=== PATIENT | female | born 1945 | race Caucasian/White ===

== ENCOUNTER 2018-05-05 10:55 | Observation (INO) | payer OTHER ==
[~2018-05-05] VITALS: Ht 167.6 cm; Wt 76.1 kg
[~2018-05-05 10:55] MED LIST: BAYER CHEWABLE81 MG PO; CRESTOR40 MG PO; LOSARTAN POTAS100 MG PO; METOPROLOL TART50 MG PO; MOTRIN800 MG PO
[2018-05-05 11:27] LABS: HEMATOCRIT 30.3 % (36.0-46.0); HEMOGLOBIN 9.9 G/DL (11.9-15.5); MCHC 32.7 G/DL (30.0-36.0); MCV 85.6 FL (83-99); PLATELET COUNT 169 K/uL (156-360); RBC DIS.WIDTH-CV 15.2 % (11.8-14.6); RBC DIS.WIDTH-SD 47.9 % (39-53); RED BLOOD COUNT 3.54 M/uL (3.80-5.20); WHITE BLOOD COUNT 5.5 K/uL (4.1-10.2)
[2018-05-05 11:36] LABS: CHLORIDE 110 mEq/L (99-109); SODIUM 140 mEq/L (136-147)
[2018-05-05 11:38] LABS: GLUCOSE 93 mg/dL (70-99)
[2018-05-05 11:41] LABS: CREATININE 1.1 mg/dL (0.6-1.3); GFR ESTIMATE (CALCULATED) 52 mL/min/
[2018-05-05 11:42] LABS: UREA NITROGEN (BUN) 23 mg/dL (9-23)
[2018-05-05 11:48] LABS: TROP-I INTERPRETATION NEGATIVE; TROPONIN-I 0.01 ng/mL (0.0-0.30)
[2018-05-05] MEDS ORDERED: IBUPROFEN800 MG PO (14:39)
[2018-05-05] MEDS ORDERED: METFORMIN HCL500 MG PO (14:40)
[2018-05-05] MEDS ORDERED: ZOCOR20 MG PO (14:41)
[2018-05-05] MEDS ORDERED: COLACE100 MG PO (14:41)
[2018-05-05 15:03] LABS: HDL CHOLESTEROL 39 MG/DL (Desirable>=50); LDL CHOLESTEROL 141 mg/dL (Desirable<100); NON-HDL CHOLESTEROL 170 mg/dL (Desirable<160); TOTAL CHOLESTEROL 209 mg/dL (Desirable<200); TRIGLYCERIDES 144 MG/DL (Normal: <150)
[2018-05-05 16:29] VITALS: BP 180/73
[2018-05-05 18:27] LABS: TROP-I INTERPRETATION NEGATIVE; TROPONIN-I 0.01 ng/mL (0.0-0.30)
[2018-05-05 19:09] VITALS: BP 167/73
[2018-05-06 01:07] LABS: TROP-I INTERPRETATION NEGATIVE; TROPONIN-I 0.01 ng/mL (0.0-0.30)
[2018-05-06 01:40] VITALS: BP 140/67
[2018-05-06 05:15] VITALS: BP 162/73
[2018-05-06 05:30] LABS: HEMATOCRIT 28.9 % (36.0-46.0); HEMOGLOBIN 9.2 G/DL (11.9-15.5); MCH 27.6 PG (29.0-34.0); MCHC 31.8 G/DL (30.0-36.0); MCV 86.8 FL (83-99); PLATELET COUNT 146 K/uL (156-360); RBC DIS.WIDTH-CV 15.1 % (11.8-14.6); RBC DIS.WIDTH-SD 48.1 % (39-53); RED BLOOD COUNT 3.33 M/uL (3.80-5.20); WHITE BLOOD COUNT 4.6 K/uL (4.1-10.2)
[2018-05-06 06:08] LABS: CHLORIDE 106 MEQ/L (99-109); CREATININE 1.1 MG/DL (0.6-1.3); GFR ESTIMATE (CALCULATED) 52 mL/min/; GLUCOSE 84 mg/dL (70-99); POTASSIUM 4.7 MEQ/L (3.7-5.4); SODIUM 137 MEQ/L (136-147); UREA NITROGEN (BUN) 21 mg/dL (9-23)
[2018-05-06 07:29] VITALS: BP 143/64
[2018-05-06 12:23] VITALS: BP 121/76
[2018-05-06] MEDS ORDERED: VALACYCLOVIR500 MG PO (12:34)
[2018-05-06] MEDS ORDERED: LOPRESSOR25 MG PO (12:34)
[2018-05-06] MEDS ORDERED: GABAPENTIN300 MG PO (12:35)
== END 2018-05-06 13:37 | disposition home or self-care (01) ==
LOC: EME 10:55 → EDOF 14:03 → ENRESERV 14:06 → 4SOUTH 16:08
PROVIDERS: Emergency Medicine; Internal Medicine
DX: B02.23 Postherpetic polyneuropathy (principal); B02.29 Other postherpetic nervous system involvement; R07.89 Other chest pain; I25.10 Atherosclerotic heart disease of native coronary artery without angina pectoris; Z95.1 Presence of aortocoronary bypass graft; Z95.5 Presence of coronary angioplasty implant and graft; R00.1 Bradycardia, unspecified; I11.9 Hypertensive heart disease without heart failure; E11.9 Type 2 diabetes mellitus without complications; E78.5 Hyperlipidemia, unspecified; E78.00 Pure hypercholesterolemia, unspecified; I35.0 Nonrheumatic aortic (valve) stenosis; K80.20 Calculus of gallbladder without cholecystitis without obstruction; Z79.82 Long term (current) use of aspirin
CPT/HCPCS: 71045; 71275; 80048; 80061; 83880; 84145 90; 84484; 85027; 93005; 94799; 99281; 99285; G0378; J0461; J0696; J1650; J2270